=== PATIENT | female | born 1980 | race Caucasian/White ===

== ENCOUNTER 2016-09-28 00:33 | Emergency (ER) | payer OTHER ==
[~2016-09-28] VITALS: Ht 170.2 cm; Wt 114.4 kg
[~2016-09-28 00:33] MED LIST: ALBUTEROL SULF8.5 GM IH; ATARAX,VISTARIL25 M1 PO; ATARAX,VISTARIL25 MG PO; ATARAX,VISTARIL50 MG PO; ATIVAN1 MG PO; BACTRIM,SEPT1 TABLET PO; BUSPAR5 MG PO; CATAPRES0.1 MG PO; CIPRO500 MG PO; CLINDAGEL75 ML TP; Coumadin,Jantoven PO; EFFEXOR75 MG PO; FENTANYL1 EAC5 TD; FLEXERIL10 MG PO; FLEXERIL5 MG PO; KEFLEX500 MG PO; LEVAQUIN750 MG PO; LOMOTIL TABLET1 EACH PO; LYRICA150 MG PO; LYRICA75 MG PO; MEDROL DOSEPAK4 MG PO; METHADONE10 MG PO; MOTRIN600 MG PO; MOTRIN800 MG PO; NEXIUM40 MG PO; NO HOME MEDS; NORCO 5/3251 TABLET PO; NUCYNTA50 MG PO; Naprosyn PO; OXYCODONE HCL10 MG PO; OXYCODONE HCL15 MG PO; OXYCODONE HCL5 MG PO; OxyCODONE PO; PAROXETINE HCL40 MG PO; PAXIL40 MG PO; PERCOCET 5/31 TABLET PO; PRILOSEC20 MG PO; PRINIVIL10 MG PO; PROMETHAZINE HC25 M1 PO; ROBITUSSIN AC,T10 ML PO; Reglan PO; SOMA350 MG PO; TORADOL10 MG PO; TRAMADOL HCL50 MG PO; TRAZODONE HCL50 MG PO; TYLENOL WITH C1 EACH PO; ULTRAM50 MG PO; VENLAFAXINE HCL75 M3 PO; Wellbutrin XL PO; ZITHROMAX500 MG PO; ZOFRAN ODT8 MG PO; [UNRECOGNIZED DRUG - OTHER] PO
[2016-09-28] MEDS ORDERED: KEFLEX500 MG PO (02:28)
[2016-09-28 02:42] VITALS: BP 166/86
== END 2016-09-28 02:43 | disposition home or self-care (01) ==
LOC: EME 00:33
PROC: 3E0T3BZ Introduction of Anesthetic Agent into Peripheral Nerves and Plexi, Percutaneous Approach (ICD-10-PCS; principal; 2016-09-28)
DX: K08.89 Other specified disorders of teeth and supporting structures (principal); G89.18 Other acute postprocedural pain; T81.4XXA Infection following a procedure, initial encounter; K04.7 Periapical abscess without sinus; Z98.818 Other dental procedure status; F17.200 Nicotine dependence, unspecified, uncomplicated
CPT/HCPCS: 99281; 99284

== ENCOUNTER 2017-03-16 12:12 | Emergency (ER) | payer OTHER | END 2017-03-16 12:35 | disposition left against medical advice (07) | LOC: EME 12:12 | DX: R10.32 Left lower quadrant pain (principal); Z53.21 Procedure and treatment not carried out due to patient leaving prior to being seen by health care provider ==

== ENCOUNTER 2017-12-01 03:14 | Inpatient (IN) | payer OTHER ==
[~2017-12-01] VITALS: Ht 170.2 cm; Wt 101.0 kg
[2017-12-01] VITALS (35 sets, daily range): BP systolic 134–167; BP diastolic 91–113
[~2017-12-01 03:14] MED LIST changes: +DESYREL100 MG PO; -TRAZODONE HCL50 MG PO
[2017-12-01 03:55] LABS: HEMATOCRIT 40.6 % (36.0-46.0); HEMOGLOBIN 14.3 G/DL (11.9-15.5); MCH 32.1 PG (29.0-34.0); MCHC 35.2 G/DL (30.0-36.0); MCV 91.2 FL (83-99); PLATELET COUNT 215 K/uL (156-360); RBC DIS.WIDTH-CV 12.1 % (11.8-14.6); RBC DIS.WIDTH-SD 39.7 % (39-53); RED BLOOD COUNT 4.45 M/uL (3.80-5.20); WHITE BLOOD COUNT 11.2 K/uL (4.1-10.2)
[2017-12-01 03:55] LABS: BASE EXCESS 2.8 mEq/L (-3 to +3); BICARBONATE 29.4 mEq/L (22-26); CARBOXY HGB 3.1 % (0-5); COMMENTS - BLOOD GASES C+A+; DEVICE NC; METHEMOGLOBIN 1.1 % (0-1.5); O2 FLOW 3 L/MIN; PCO2 52 mm Hg (35-45); PO2 50 mm Hg (80-100); SITE LR; TOTAL RESP RATE 18 resp/min; pH 7.36 (7.35-7.45)
[2017-12-01 04:02] LABS: INTER. NORMALIZED RATIO 1.1
[2017-12-01 04:05] LABS: PTT 25.4 SEC (25-37)
[2017-12-01 04:11] LABS: ALBUMIN 3.8 g/dL (3.2-4.8); CHLORIDE 102 mEq/L (99-109); POTASSIUM 2.7 mEq/L (3.7-5.4); SODIUM 144 mEq/L (136-147)
[2017-12-01 04:14] LABS: GLUCOSE 155 mg/dL (70-99); TOTAL PROTEIN 6.4 g/dL (6.4-8.3)
[2017-12-01 04:15] LABS: TOTAL BILIRUBIN 0.5 mg/dL (0.0-1.0)
[2017-12-01 04:16] LABS: SERUM ETHYL ALCOHOL < 10 mg/dL
[2017-12-01 04:17] LABS: CREATININE 0.9 mg/dL (0.6-1.3); GFR ESTIMATE (CALCULATED) > 59 mL/min/
[2017-12-01 04:18] LABS: ALKALINE PHOSPHATASE 87 IU/L (3-129)
[2017-12-01 04:19] LABS: AST (GOT) 35 IU/L (2-34); UREA NITROGEN (BUN) 8 mg/dL (9-23)
[2017-12-01 04:21] LABS: ACETAMINOPHEN (TYLENOL) < 10 mcg/mL (10-30); ALT (GPT) 27 IU/L (3-49); SALICYLATE < 5.0 MG/DL (15-30); TROP-I INTERPRETATION NEGATIVE; TROPONIN-I < 0.01 ng/mL (0.0-0.30)
[2017-12-01 04:23] LABS: CREATINE KINASE 2065 IU/L (1-294)
[2017-12-01 05:26] LABS: BASE EXCESS 1.8 mEq/L (-3 to +3); BICARBONATE 28.6 mEq/L (22-26); CARBOXY HGB 2.7 % (0-5); METHEMOGLOBIN 1.2 % (0-1.5); PCO2 53 mm Hg (35-45); pH 7.34 (7.35-7.45)
[2017-12-01 05:27] LABS: COMMENTS - BLOOD GASES C+A+; DEVICE 980 VENT; FI02 40 %; MODE SPONT; PEEP 5 CM/H20; PO2 64 mm Hg (80-100); PRES. SUPPORT 12 CM/H2O; SITE LR; TOTAL RESP RATE 13 resp/min
[2017-12-01 06:51] LABS: AMPHETAMINE NEGATIVE (500 ng/mL); COCAINE PRESUMPTIVE POSITIVE (150 ng/mL); METHAMPHETAMINE PRESUMPTIVE POSITIVE (500 ng/mL); OPIATES (MORPHINE) NEGATIVE (100 ng/mL); PHENCYCLIDINE NEGATIVE (25 ng/mL); THC CANNABINOIDS NEGATIVE (50 ng/mL)
[2017-12-01 06:52] LABS: BARBITURATES PRESUMPTIVE POSITIVE (200 ng/mL); BENZODIAZEPINES PRESUMPTIVE POSITIVE (150 ng/mL); BUPRENORPHINE PRESUMPTIVE POSITIVE (10 ng/mL); METHADONE NEGATIVE (200 ng/mL); OXYCODONE NEGATIVE (100 ng/mL); PROPOXYPHENE NEGATIVE (300 ng/mL); TRICYCLIC ANTIDEPRESSANTS NEGATIVE (300 ng/mL)
[2017-12-01 07:41] LABS: BENZODIAZEPINES, URINE SCREEN Negative (200 ng/mL)
[2017-12-01 08:24] LABS: MAGNESIUM 2.3 mg/dL (1.3-2.7)
[2017-12-01 08:29] LABS: PHOSPHORUS 2.8 mg/dL (2.5-4.9)
[2017-12-01 08:42] LABS: BASE EXCESS 1.9 mEq/L (-3 to +3); BICARBONATE 30.8 mEq/L (22-26); CARBOXY HGB 2.3 % (0-5); DEVICE 980; FI02 80 %; METHEMOGLOBIN 1.2 % (0-1.5); MODE AC; PCO2 67 mm Hg (35-45); PO2 65 mm Hg (80-100); SITE RR; pH 7.27 (7.35-7.45)
[2017-12-01 08:43] LABS: MECHANICAL RATE 18 resp/min; TIDAL VOLUME 450 ML; TOTAL RESP RATE 22 resp/min
[2017-12-01 08:44] LABS: COMMENTS - BLOOD GASES A+C+; PEEP 8 CM/H20
[2017-12-01 10:16] LABS: BASE EXCESS 3.3 mEq/L (-3 to +3); BICARBONATE 29.9 mEq/L (22-26); CARBOXY HGB 1.8 % (0-5); METHEMOGLOBIN 1.7 % (0-1.5); pH 7.36 (7.35-7.45)
[2017-12-01 10:17] LABS: PCO2 53 mm Hg (35-45); PO2 137 mm Hg (80-100); SITE RR
[2017-12-01 10:18] LABS: COMMENTS - BLOOD GASES A+C+; DEVICE VENT; FI02 100 %; MECHANICAL RATE 30 resp/min; MODE AC; PEEP 10 CM/H20; TIDAL VOLUME 450 ML; TOTAL RESP RATE 30 resp/min
[2017-12-01 18:04] LABS: BASE EXCESS 4.8 mEq/L (-3 to +3); BICARBONATE 29.9 mEq/L (22-26); CARBOXY HGB 1.8 % (0-5); COMMENTS - BLOOD GASES A+C+; METHEMOGLOBIN 1.7 % (0-1.5); PCO2 45 mm Hg (35-45); PO2 55 mm Hg (80-100); SITE RR; pH 7.43 (7.35-7.45)
[2017-12-01 18:05] LABS: DEVICE VEN; FI02 35 %; MODE SPONT; PEEP 5 CM/H20; PRES. SUPPORT 5 CM/H2O; TOTAL RESP RATE 14 resp/min
[2017-12-02] VITALS (18 sets, daily range): BP systolic 110–150; BP diastolic 68–108
[2017-12-02 07:11] LABS: HEMATOCRIT 34.9 % (36.0-46.0); MCH 32.5 PG (29.0-34.0); MCV 93.1 FL (83-99); NRBC (%) 0.3 /100 WBC (0-0); PLATELET COUNT 157 K/uL (156-360); RBC DIS.WIDTH-CV 12.3 % (11.8-14.6); RED BLOOD COUNT 3.75 M/uL (3.80-5.20); WHITE BLOOD COUNT 9.3 K/uL (4.1-10.2)
[2017-12-02 07:27] LABS: HEMOGLOBIN 12.2 G/DL (11.9-15.5)
[2017-12-02 07:47] LABS: APPEARANCE CLOUDY ((CLEAR)); BILIRUBIN NEGATIVE; BLOOD LARGE; COLOR YELLOW ((YELLOW)); GLUCOSE (STRIP) NEGATIVE; KETONES NEGATIVE; LEUKOCYTES NEGATIVE; NITRITE NEGATIVE; PH, URINE 6.5 (5-8); PROTEIN (STRIP) 30; SPECIFIC GRAVITY 1.015 (1.000-1.030); UROBILINOGEN 0.2 MG/DL (0.2-1.0)
[2017-12-02 07:55] LABS: EPITHELIAL CELLS 2+ /HPF; MUCUS NONE SEEN /LPF
[2017-12-02 08:00] LABS: RED BLOOD CELLS 40-50 /HPF (0-5)
[2017-12-02 08:01] LABS: AMORPHOUS URATES CRYSTALS 1+; BACTERIA RARE /HPF; CALCIUM OXALATE CRYSTALS 1+ /HPF
[2017-12-02 10:15] LABS: ALBUMIN 3.1 g/dL (3.2-4.8); CHLORIDE 106 mEq/L (99-109); SODIUM 143 mEq/L (136-147)
[2017-12-02 10:19] LABS: GLUCOSE 103 mg/dL (70-99); POTASSIUM 3.6 mEq/L (3.7-5.4); TOTAL PROTEIN 5.2 g/dL (6.4-8.3)
[2017-12-02 10:21] LABS: ALKALINE PHOSPHATASE 78 IU/L (3-129); PHOSPHORUS 3.6 mg/dL (2.5-4.9)
[2017-12-02 10:22] LABS: CREATININE 0.6 mg/dL (0.6-1.3); GFR ESTIMATE (CALCULATED) > 59 mL/min/; TOTAL BILIRUBIN 0.9 mg/dL (0.0-1.0)
[2017-12-02 10:23] LABS: AST (GOT) 30 IU/L (2-34); UREA NITROGEN (BUN) 6 mg/dL (9-23)
[2017-12-02 10:24] LABS: ALT (GPT) 24 IU/L (3-49)
[2017-12-02 10:25] LABS: CREATINE KINASE 843 IU/L (1-294)
[2017-12-02] MEDS ORDERED: NEURONTIN300 MG PO (10:47)
[2017-12-03 03:53] VITALS: BP 141/87
[2017-12-03 08:10] VITALS: BP 153/88; BP 163/88
[2017-12-03 09:18] LABS: CHLORIDE 104 MEQ/L (99-109); CREATINE KINASE 422 IU/L (1-294); CREATININE 0.4 MG/DL (0.6-1.3); GFR ESTIMATE (CALCULATED) > 59 mL/min/; GLUCOSE 97 mg/dL (70-99); POTASSIUM 3.2 MEQ/L (3.7-5.4); SODIUM 140 MEQ/L (136-147); UREA NITROGEN (BUN) 4 mg/dL (9-23)
[2017-12-03 12:35] VITALS: BP 137/85
[2017-12-03 17:05] VITALS: BP 163/98
[2017-12-03 19:48] VITALS: BP 130/75
[2017-12-04] VITALS: BP 151/70
[2017-12-04 03:58] VITALS: BP 167/86
[2017-12-04 08:28] VITALS: BP 161/98
[2017-12-04 08:57] LABS: CHLORIDE 101 MEQ/L (99-109); CREATININE 0.4 MG/DL (0.6-1.3); GFR ESTIMATE (CALCULATED) > 59 mL/min/; GLUCOSE 118 mg/dL (70-99); POTASSIUM 3.4 MEQ/L (3.7-5.4); SODIUM 139 MEQ/L (136-147); UREA NITROGEN (BUN) 4 mg/dL (9-23)
[2017-12-04 09:29] LABS: HEMATOCRIT 35.3 % (36.0-46.0); HEMOGLOBIN 12.8 G/DL (11.9-15.5); MCH 32.3 PG (29.0-34.0); MCHC 36.3 G/DL (30.0-36.0); MCV 89.1 FL (83-99); PLATELET COUNT 181 K/uL (156-360); RBC DIS.WIDTH-CV 11.9 % (11.8-14.6); RBC DIS.WIDTH-SD 37.9 % (39-53); RED BLOOD COUNT 3.96 M/uL (3.80-5.20); WHITE BLOOD COUNT 6.6 K/uL (4.1-10.2)
[2017-12-04 12:39] VITALS: BP 174/97
[2017-12-04] MEDS ORDERED: MOTRIN600 MG PO (14:43)
[2017-12-04] MEDS ORDERED: ELIQUIS5 MG PO (14:43)
[2017-12-04] MEDS ORDERED: BUPRENORPHINE HC8 MG SL (15:16)
[2017-12-04 16:29] VITALS: BP 167/97
== END 2017-12-04 17:24 | DRG 917 ==
LOC: EME 03:14 → EDOF 06:28 → 4WEST 06:28 → CANRESERV 06:29 → ENRESERV 06:29 → EDOF 08:12 → 4WEST 08:54 → ENRESERV 12-02 10:32 → 5SOUTH 12-02 15:34 → ENPENDDIS 12-04 14:47 → 5SOUTH 12-04 17:24
PROVIDERS: Emergency Medicine; Hospitalist; Internal Medicine; Specialist
PROC: 5A1935Z Respiratory Ventilation, Less than 24 Consecutive Hours (ICD-10-PCS; principal; 2017-12-01)
PROC: 0BH17EZ Insertion of Endotracheal Airway into Trachea, Via Natural or Artificial Opening (ICD-10-PCS; 2017-12-01)
PROC: 5A09357 Assistance with Respiratory Ventilation, Less than 24 Consecutive Hours, Continuous Positive Airway Pressure (ICD-10-PCS; 2017-12-01)
DX: T43.212A Poisoning by selective serotonin and norepinephrine reuptake inhibitors, intentional self-harm, initial encounter (principal); J96.00 Acute respiratory failure, unspecified whether with hypoxia or hypercapnia; I26.99 Other pulmonary embolism without acute cor pulmonale; F33.2 Major depressive disorder, recurrent severe without psychotic features; R45.851 Suicidal ideations; E87.2 Acidosis; M62.82 Rhabdomyolysis; J90 Pleural effusion, not elsewhere classified; J98.11 Atelectasis; T42.6X2A Poisoning by other antiepileptic and sedative-hypnotic drugs, intentional self-harm, initial encounter; T40.5X2A Poisoning by cocaine, intentional self-harm, initial encounter; I10 Essential (primary) hypertension; J45.909 Unspecified asthma, uncomplicated; K21.9 Gastro-esophageal reflux disease without esophagitis; F41.9 Anxiety disorder, unspecified; E87.6 Hypokalemia; F17.210 Nicotine dependence, cigarettes, uncomplicated; F14.10 Cocaine abuse, uncomplicated; Z60.2 Problems related to living alone; G47.00 Insomnia, unspecified; G89.29 Other chronic pain; Z88.0 Allergy status to penicillin; Z88.5 Allergy status to narcotic agent; Z79.01 Long term (current) use of anticoagulants; Z86.711 Personal history of pulmonary embolism; Z86.718 Personal history of other venous thrombosis and embolism; Z90.49 Acquired absence of other specified parts of digestive tract; Z90.721 Acquired absence of ovaries, unilateral; Z91.19 Patient's noncompliance with other medical treatment and regimen; Z91.5 Personal history of self-harm; Z98.1 Arthrodesis status
CPT/HCPCS: 36600; 70450; 71045; 71275; 80048; 80053; 81003; 82550; 82803; 82810; 83605; 83735; 83930; 84100; 84484; 84999; 85027; 85610; 85730; 87040; 87070; 87086; 87205; 87641; 93005; 93306; 94002; 94003; 94640; 94640 76; 94760; 94799; 99202; 99281; 99285; G0480; J1956; J2310; J2405; J2704; J3010; J3480; J7030; S0028; S0030

== ENCOUNTER 2017-12-04 16:30 | Inpatient (IN) | payer OTHER ==
[~2017-12-04] VITALS: Ht 170.2 cm; Wt 95.0 kg
[~2017-12-04 16:30] MED LIST changes: +BUPRENORPHINE HC8 MG SL; +ELIQUIS5 MG PO; +NEURONTIN300 MG PO
[2017-12-04 19:20] VITALS: BP 178/99
[2017-12-05 07:36] VITALS: BP 157/75
[2017-12-05 15:18] VITALS: BP 126/69
[2017-12-06 07:17] VITALS: BP 157/91
[2017-12-06] MEDS ORDERED: EFFEXOR XR150 MG PO (08:59)
[2017-12-06] MEDS ORDERED: DESYREL100 MG PO (08:59)
[2017-12-06] MEDS ORDERED: ELIQUIS5 MG PO (08:59)
== END 2017-12-06 11:09 | disposition home or self-care (01) | DRG 885 ==
LOC: 1WEST 16:30 → ENRESERV 16:31 → 1WEST 17:52
DX: F33.2 Major depressive disorder, recurrent severe without psychotic features (principal); F11.20 Opioid dependence, uncomplicated; F14.20 Cocaine dependence, uncomplicated; R45.851 Suicidal ideations; F17.210 Nicotine dependence, cigarettes, uncomplicated; F41.9 Anxiety disorder, unspecified; N80.9 Endometriosis, unspecified; Z91.5 Personal history of self-harm; Z56.0 Unemployment, unspecified; Z86.711 Personal history of pulmonary embolism; T42.6X2D Poisoning by other antiepileptic and sedative-hypnotic drugs, intentional self-harm, subsequent encounter; Z79.01 Long term (current) use of anticoagulants
CPT/HCPCS: J0571

== ENCOUNTER 2018-02-14 16:36 | Emergency (ER) | payer OTHER ==
[~2018-02-14] VITALS: Ht 167.6 cm; Wt 98.1 kg
[~2018-02-14 16:36] MED LIST changes: +EFFEXOR XR150 MG PO
[2018-02-14 17:24] LABS: APPEARANCE SL.HAZY ((CLEAR)); BILIRUBIN NEGATIVE; BLOOD NEGATIVE; COLOR YELLOW ((YELLOW)); GLUCOSE (STRIP) NEGATIVE; KETONES NEGATIVE; LEUKOCYTES TRACE; NITRITE NEGATIVE; PROTEIN (STRIP) 30; SPECIFIC GRAVITY 1.024 (1.000-1.030)
[2018-02-14 17:29] LABS: HEMATOCRIT 41.7 % (36.0-46.0); HEMOGLOBIN 14.6 G/DL (11.9-15.5); MCV 88.5 FL (83-99); PLATELET COUNT 236 K/uL (156-360); RBC DIS.WIDTH-CV 11.7 % (11.8-14.6); RBC DIS.WIDTH-SD 37.7 % (39-53); RED BLOOD COUNT 4.71 M/uL (3.80-5.20); WHITE BLOOD COUNT 8.5 K/uL (4.1-10.2)
[2018-02-14 17:37] LABS: ALBUMIN 4.1 g/dL (3.2-4.8); INTER. NORMALIZED RATIO 1.1
[2018-02-14 17:37] LABS: BACTERIA 2+ /HPF; CALCIUM OXALATE CRYSTALS 2+ /HPF; EPITHELIAL CELLS 1+ /HPF; HYALINE CASTS 0-5 /LPF; MUCUS 4+ /LPF; RED BLOOD CELLS 0-5 /HPF (0-5); UCUL ADDED? YES; WHITE BLOOD CELLS 0-5 /HPF (0-5)
[2018-02-14 17:38] LABS: CHLORIDE 103 mEq/L (99-109); POTASSIUM 3.9 mEq/L (3.7-5.4); SODIUM 141 mEq/L (136-147)
[2018-02-14 17:40] LABS: GLUCOSE 101 mg/dL (70-99); PTT 28.6 SEC (25-37); TOTAL PROTEIN 7.1 g/dL (6.4-8.3)
[2018-02-14 17:42] LABS: TOTAL BILIRUBIN 0.5 mg/dL (0.0-1.0)
[2018-02-14 17:43] LABS: ALKALINE PHOSPHATASE 100 IU/L (3-129)
[2018-02-14 17:44] LABS: CREATININE 0.8 mg/dL (0.6-1.3); GFR ESTIMATE (CALCULATED) > 59 mL/min/
[2018-02-14 17:45] LABS: AST (GOT) 15 IU/L (2-34); UREA NITROGEN (BUN) 5 mg/dL (9-23)
[2018-02-14 17:46] LABS: ALT (GPT) 23 IU/L (3-49)
[2018-02-14 17:53] LABS: QUANTITATIVE HCG < 4.0 MIU/ML
[2018-02-14] MEDS ORDERED: PEPCID40 MG PO (18:17)
[2018-02-14] MEDS ORDERED: CARAFATE1 GM PO (18:17)
[2018-02-14 18:29] VITALS: BP 135/93
== END 2018-02-14 18:30 | disposition home or self-care (01) ==
LOC: EME 16:36
PROVIDERS: Physician Assistant
DX: K92.0 Hematemesis (principal); I10 Essential (primary) hypertension; K21.9 Gastro-esophageal reflux disease without esophagitis; J45.909 Unspecified asthma, uncomplicated; F41.9 Anxiety disorder, unspecified; F32.9 Major depressive disorder, single episode, unspecified; F17.200 Nicotine dependence, unspecified, uncomplicated; Z79.891 Long term (current) use of opiate analgesic; Z87.19 Personal history of other diseases of the digestive system; Z87.442 Personal history of urinary calculi; Z86.711 Personal history of pulmonary embolism; Z98.1 Arthrodesis status; Z90.49 Acquired absence of other specified parts of digestive tract; Z90.721 Acquired absence of ovaries, unilateral; Z90.79 Acquired absence of other genital organ(s); Z88.5 Allergy status to narcotic agent; Z88.0 Allergy status to penicillin; Z88.8 Allergy status to other drugs, medicaments and biological substances
CPT/HCPCS: 80053; 81003; 84702; 85027; 85610; 85730; 87086; 93005; 99281; 99283